=== PATIENT | female | born 1955 | race Caucasian/White ===

== ENCOUNTER → 2016-07-04 | Outpatient (CLI) | payer MEDICAID ==
[~2016-07-04] MED LIST: GADOBUTROL 10 ML VIAL IVP ONE
== END ==
LOC: FIMAGING 14:46
PROVIDERS: ATTEND Nurse Practitioner
DX: Z12.89 Encounter for screening for malignant neoplasm of other sites (principal); G93.9 Disorder of brain, unspecified; C50.411 Malignant neoplasm of upper-outer quadrant of right female breast; D70.2 Other drug-induced agranulocytosis; T82.9XXA Unspecified complication of cardiac and vascular prosthetic device, implant and graft, initial encounter
CPT/HCPCS: A9585